=== PATIENT | male | born 1950 | race Caucasian/White ===

== ENCOUNTER → 2019-11-05 13:08 | Outpatient (CLI) | payer OTHER, SELFPAY ==
--- NOTE | ~2019-11-05 | XR_ITS ---
EXAMINATION: XR chest 2V DATE: 11/05/2019 13:42 INDICATION: Shortness of breath. TECHNIQUE: Frontal and lateral views of the chest were obtained. COMPARISON: Chest 2 views 10/07/2019, chest CT 01/08/2019 FINDINGS: Again seen is mild elevation of right hemidiaphragm. A calcified right lung nodule and calc ified mediastinal lymph nodes are consistent with old granulomatous disease. There is mild atelectasi s at the lung bases. No pleural effusion or pneumothorax. Cardiomegaly is noted. IMPRESSION: 1. Mild atelectasis at the lung bases. 2. Cardiomegaly. Reviewed, dictated and finalized at location A. [facility]
== END ==
PROVIDERS: Visit Provider Nurse Practitioner Family
DX: I51.7 Cardiomegaly (principal); J98.11 Atelectasis
CPT/HCPCS: 71046

== ENCOUNTER 2019-12-13 00:24 | Inpatient (IN) | payer MEDICARE, SELFPAY ==
[2019-12-13] VITALS (42 sets, daily range): BP systolic 91–187; BP diastolic 53–98; PULSE 50–96; RESP 12–20; TEMP 33–36.7; O2SAT 87–100; BMI 42.3
--- NOTE | ~2019-12-13 | CT_ITS ---
EXAMINATION: CT brain wo con DATE: 12/13/2019 02:10 INDICATION: Cardiac arrest. Unresponsiveness. TECHNIQUE: Computed tomography (CT) of the head was performed without intravenous contrast. The dose- length product was 605.33 mGy-cm. The mA was adjusted according to patient size. Iterative reconstruc tion technique was employed. COMPARISON: None FINDINGS: There are scattered mild periventricular and subcortical white matter changes, most likely related to small vessel ischemic disease (microangiopathy). There is diffuse loss of castellano-white diffe rentiation, suspicious for acute anoxic injury. There is effacement of the basilar cisterns. There is mucosal thickening of the paranasal sinuses. Mastoids are pneumatized. There is intracranial atheros clerosis. No evidence for intracranial hemorrhage. IMPRESSION: 1. Diffuse loss of castellano-white differentiation, suspicious for acute anoxic injury. 2: Sinusitis. 3: Chronic age-related findings. Reviewed, dictated and finalized at location A. IMPRESSION: 1. Diffuse loss of castellano-white differentiation, suspicious for acute anoxic inju ry. 2: Sinusitis. 3: Chronic age-related findings.
--- NOTE | ~2019-12-13 | XR_ITS ---
XR chest 1V portable 12/13/2019 01:56 Indication: Vomiting. Dyspnea. Procedure: AP portable chest Comparison: Comparison to multiple prior studies sequentially, with oldest reviewed study dated 08/23. Findings: Endotracheal tube tip approximately 5.2 cm above the bobbi. NG tube in the stomach. Cardio megaly with bilateral airspace disease which may represent edema and/or pneumonia. Small pleural effu sions. No pneumothorax. Left IJ central line tip in the left brachiocephalic vein. Impression: 1: Bilateral airspace disease may represent edema and/or pneumonia. 2: Small pleural effusions. 3: Cardiomegaly. Reviewed, dictated and finalized at location A. Impression: 1: Bilateral airspace disease may represent edema and/or pneumonia. 2: Small pleural effusions. 3: Cardiomegaly.
--- NOTE | ~2019-12-13 | XR_ITS ---
XR chest 1V portable 12/13/2019 00:52 Indication: Central line placement Procedure: AP portable chest Comparison: Comparison to multiple prior studies sequentially, with oldest reviewed study dated 01/08. Findings: Cardiomegaly with interstitial edema. Endotracheal tube above the thoracic inlet approximat lita 8.3 cm above the bobbi. Recommend advancement. NG tube in the stomach. No pleural effusion or pn eumothorax. Impression: 1: Cardiomegaly with interstitial edema. 2: Endotracheal tube tip approximately 8.3 cm above the bobbi. Consider advancing. Reviewed, dictated and finalized at location A. Impression: 1: Cardiomegaly with interstitial edema. 2: Endotracheal tube tip approximately 8.3 cm above the bobbi. Consider guevara boles.
--- NOTE | 2019-12-13 00:19 | ED.CPR ---
HPI - CPR General Chief Complaint: Cardiac Arrest/CPR Stated Complaint: Post cardiac arrest Time Seen by Provider: 12/13/19 00:20 Source: EMS and RN notes reviewed Mode of arrival: EMS Limitations: clinical condition History of Present Illness HPI narrative: A 69 y/o male presents to the ED via EMS from home after being found unresponsive by his roughly 50 minutes ago. EMS states that the pt's was talking to him a couple minutes before she found him face down on the floor. When they arrived the pt was asystole so they started CPR and followed ACLS protocol. They report that they intubated the pt, started a IO in his LLE, gave the pt 2 rounds of Epinephrin, and that they did CPR on the pt for roughly 25 minutes when the pt developed a palpable carotid pulse. They note that the pt has been being treated for pneumonia at home for the past 2 months. MD complaint: found unresponsive Timing confirmed by: spouse Place: home Initial findings in the field: unresponsive and no pulse Treatments prior to arrival: intubation, chest compressions and epinephrine mgs # (2) Related Data Home Medications Medication Instructions Recorded Confirmed albuterol sulfate 2.5 mg INHALATION Q4-6H PRN 11/30/19 12/13/19 amlodipine 10 mg-olmesartan 40 mg 1 tablet PO DAILY tablet 11/30/19 12/13/19 tablet atorvastatin 20 mg tablet 20 mg PO DAILY tablet 11/30/19 12/13/19 blood sugar diagnostic #10 each 11/30/19 ferrous sulfate 325 mg (65 mg 325 mg PO DAILY tablet 11/30/19 12/13/19 iron) tablet fluticasone 113 mcg-salmeterol 14 1 puff INHALATION BID each 11/30/19 12/13/19 mcg/actuation breath activated powdr glimepiride 2 mg tablet 2 mg PO DAILY tablet 11/30/19 12/13/19 lancets 33 gauge #100 each 11/30/19 omeprazole 20 mg capsule,delayed 20 mg PO DAILY cap 11/30/19 12/13/19 release oxybutynin chloride 5 mg tablet 5 mg PO DAILY tablet 11/30/19 12/13/19 potassium chloride 20 mEq 20 meq PO DAILY tablet 11/30/19 12/13/19 tablet,extended release(part/cryst) rivaroxaban 20 mg tablet 20 mg PO DAILY tablet 11/30/19 12/13/19 furosemide 40 mg tablet 40 mg PO BID tablet 12/01/19 12/13/19 omega-3 fatty acids 1,000 mg 1,000 mg PO BID 12/01/19 12/13/19 capsule Allergies Allergy/AdvReac Type Severity Reaction Status Date / Time JUVENAL Inhibitors Allergy Severe tongue Verified 12/13/19 03:24 swelling Review of Systems Review of Systems: ROS unobtainable: unobtainable due to endotracheal tube PMFSH Past Medical History Medical History (Updated 12/13/19 @ 07:00 by Angeles Rowan MD) Arthritis Chronic atrial fibrillation With cardioversion in 2014 and in 2016 however cardioversion in 2017 was unsuccessful, on long-term anticoagulation with Xarelto Chronic kidney disease, stage 3 Chronic obstructive pulmonary disease Chronic respiratory failure with hypoxia and hypercapnia Diastolic heart failure Elevated prostate specific antigen [PSA] Essential (primary) hypertension Former smoker GERD (gastroesophageal reflux disease) Herniation of right side of L4-L5 intervertebral disc History of BPH History of melena History of pneumonia Hypercholesteremia CHET on CPAP Pneumonia Type 2 diabetes mellitus Venous insufficiency Surgical History Surgical History (Updated 12/13/19 @ 06:33 by Candelaria Summers DO) History of angioplasty History of cholecystectomy History of colonoscopy Colonoscopy with polypectomy with multiple polyps in 2014 and repeat colonoscopy January 2019 demonstrating uncomplicated internal hemorrhoids and few diverticula History of esophagogastroduodenoscopy (EGD) Performed due to GI bleeding demonstrated gastric polyp History of prostate biopsy June 2018 complicated by E coli bacteremia postoperatively, reportedly benign pathology Hx of cardiac cath Hx of heart artery stent x3. Family History Family History Father Diabetes mellitus Hypertension
--- NOTE | 2019-12-13 00:28 | PC.NURSE ---
PT UNRESP WITH A PULSE- SINUS NIKOS 45. DR VILLANUEVA AT BEDSIDE. VRBO ATROPINE 0.5 MG IVP- GIVEN.
--- NOTE | 2019-12-13 00:45 | ECG_ITS ---
Measurements Intervals [place] Rate: 56 P: [place]: 0 QRS: -87 QRSD: 166 T: -35 QT: 436 QTc: 424 Interpretive Statements ATRIAL FIBRILLATION WITH SLOW VENTRICULAR RESPONSE LEFT AXIS DEVIATION RIGHT BUNDLE BRANCH BLOCK INFERIOR INFARCT, AGE INDETERMINATE BASELINE ARTIFACT- V4-V6 ABNORMAL ECG Electronically Signed On 12-13-2019 8:00:44 CDT by Sandeep Schmidt D.O.
[2019-12-13 00:57] LABS: Basophils Percent Auto 0.5 % (0.2-1.2); Eosinophils Percent Auto 0.2 % (0-4.4); Hemoglobin 10.9 g/dL (14.0-18.0); Immature Granulocyte Absolute 0.17 K/mm3 (0.00-0.031); Lymphocytes Absolute Auto 1.53 K/mm3 (0.9-3.2); Lymphocytes Percent Auto 18.2 % (18.3-44.2); Mean Corpuscular HGB Conc 27.9 g/dl (32-36); Mean Corpuscular Hemoglobin 28.6 pg (26-34); Mean Corpuscular Volume 102.4 fl (80-100); Mean Platelet Volume 10.8 fl (7.4-10.4); Monocytes Absolute Auto 0.7 K/mm3 (0.1-0.6); Monocytes Percent Auto 8.5 % (2.6-8.5); Neutrophils Absolute Auto 5.9 K/mm3 (1.3-6.7); Neutrophils Percent Auto 70.6 % (45.5-73.1); Nucleated Red Blood Cells Perc 0.4 % (0.0-0.2); Platelet Count Result 173 k/mm3 (150-375); Red Blood Count 3.81 M/mm3 (4.6-6.20); Red Cell Distribution Width 16.3 % (11.5-14.5); White Blood Count 8.4 K/mm3 (4.5-10.0)
[2019-12-13 01:25] LABS: Alanine Aminotransferase 30 U/L (4-50); Albumin Level 3.6 g/dL (3.5-5.1); Alkaline Phosphatase 69 U/L (38-126); Aspartate Amino Transferase 64 U/L (17-59); Bilirubin,Total 0.6 mg/dL (0.2-1.3); Blood Urea Nitrogen 26 mg/dL (9-20); Calcium 8.4 mg/dL (8.4-10.2); Carbon Dioxide 34 mmol/L (22-30); Chloride 92 mmol/L (98-107); Estimated Glomerular Filt Rate 46; Glucose 232 mg/dL (75-110); INR 3.1; Magnesium 2.7 mg/dL (1.6-2.3); NT Pro B Type Natriuretic Pept 2270 PG/ML (5-100); Partial Thromboplastin Time 41.7 SECONDS (22.3-36.8); Potassium 5.1 mmol/L (3.4-5.0); Prothrombin Time 31.6 Seconds (11.1-14.7); Sodium 139 mmol/L (137-145); Troponin I 0.046 ng/mL (0.000-0.034)
--- NOTE | 2019-12-13 01:48 | PC.NURSE ---
DR VILLANUEVA AT BEDSIDE. ATTEMPT TO ADVANCE ET TUBE PER RADIOLOGY INSTRUCTION, UNSUCCESSFUL. PT RE- INTUBATED PER DR VLILANUEVA WITH 7.0 ET TUBE TAPED 26 AT LIP. PT TOLERATED WELL. OG TUBE ADVANCED TO 80 PER RADIOLOGY INSTRUCTION. PT TOLERATED WELL. XRAY AT BEDSIDE FOR IMAGES. FAMILY UPDATED. WILL CONTINUE TO MONITOR.
[2019-12-13 01:52] LABS: Alveolar/Arterial O2 Gradient 519.5 mmHg; Base Excess ABG 2.5 mEq/l (+/-2.0); Carboxyhemoglobin 1.5 % THb (0-2.0); Device VENTILATOR; Fractional Inspired Oxygen 100 %; HCO3 ABG 33.8 mEq/l (22.0-26.0); Methemoglobin ABG 0.3 %THb (0-1.5); Modified Allen's Test Unable to perform; Oxygen Saturation ABG 95.2 % (95.0-100.0); Oxyhemoglobin 93.9 % THb (90.0-100.0); PCO2 ABG 95.1 mmHg (35.0-45.0); PO2 ABG 98.4 mmHg (80.0-100.0); PO2 FiO2 Ratio Arterial Blood 0.98 %; Reduced Hemoglobin 4.3 %THb (0-5.0); Site Drawn LEFT RADIAL; Total Hemoglobin 12.8 g/dL (12.0-18.0); pH ABG 7.169 (7.350-7.450)
[2019-12-13 01:53] LABS: Arterial Blood Gas PEEP 5 cmH2O; Arterial Blood Gas Tidal Volume 500 ml; Arterial Blood Gas Vent Mode CMV; Arterial Blood Gas Ventilator rate 16 /MIN
[2019-12-13 02:08] LABS: Add Urine Microscopic? YES; Appearance Urine Cloudy (Clear); Bacteria Urine Trace /hpf; Bilirubin Urine Negative (Negative); Blood Urine 1+ (Negative); Color Urine Yellow (Yellow); Glucose Urine UA 2+ mg/dL (Negative); Ketones Urine Negative (Negative); Leukocyte Esterase Ur Negative LEU/UL (Negative); Mucus Urine Few /lpf; Nitrate Urine Negative (Negative); Protein Urine 3+ mg/dL (Negative); RBC Urine 51-75 /hpf (0-2); Specific Grav Ur 1.011 (1.001-1.035); Squamous Epithelial Cell Urine Occasional /hpf (Few); Urobilinogen Urine Negative mg/dL (<2.0); WBC Urine 16-20 /hpf
--- NOTE | 2019-12-13 02:23 | PC.NURSE ---
pt blood pressure 107/68. dr adams notified. vrbo increase levophed drip to 15 mcg/min.
--- NOTE | 2019-12-13 02:25 | PCRCNOTE ---
TRANSPORTED PT VIA AMBU BAG FROM ER TO CT AND BACK. NO ADVERSE EVENTS NOTED DURING TRANSPORT
[2019-12-13 02:30] LABS: Lactic Acid Reflex 4.6 mmol/L (0.7-2.1)
--- NOTE | 2019-12-13 04:42 | ADMGEN ---
This patient, Elvis Fitch, was admitted to Intensive Care Unit-9. Patient/family oriented to hospital policies and general routines including ID bracelet, bed and alarms, visiting hours, pain management, procedures, bathroom and other care routines, personal items, smoking policy, room service/diet, and visiting hours. Valuables list has been completed. Information on how to activate the Rapid Response Team has been discussed. Patient/Family are encouraged to report perceived risks to care and to ask questions if they do not understand what they are told or what they should do.
[2019-12-13 04:59] LABS: Reflex Lactic Acid Yes or No Add Lactic
[2019-12-13] MEDS: NOREPINEPHRINE 8 MG/D5W 250 ML 8 MG/250 ML BAG 18.8 MG IV CONT (05:02)
[2019-12-13 05:14] LABS: Glucose Point of Care 286 (65-105)
--- NOTE | 2019-12-13 05:22 | PM.IMHP ---
H&P: HPI History of Present Illness Chief complaint: CARDIOPULMONARY ARREST Narrative: Date and time of patient contact: 12/13/2019 at 4:00 a.m. Source of information: Information was obtained from ER report and from past medical records. Patient's went home before the patient arrived in the ICU. The patient's had evidently taken NyQuil prior to the patient going into cardiac arrest. Elvis Fitch is a 69 year old male with a past medical history chronic atrial fibrillation on chronic anticoagulation, chronic respiratory failure, obstructive sleep apnea, congestive heart failure, COPD/asthma, and coronary artery disease who presented to the ER via EMS after having a cardiac arrest at home. The the patient's reported to the ER staff that she had been talking to the patient a couple of minutes before she found him face down on the floor. When EMS arrived at the patient's house the patient was in asystole and they started CPR. The patient was intubated in the field and and IO was placed in his left lower extremity. He received 2 rounds of epinephrine and he perform CPR for 25 minutes. The patient developed a palpable carotid pulse. A chest x-ray was performed when patient arrived to the ER and was concerning for the ET tube being above the vocal cords. The patient was reintubated by the ER physician with fiberoptic scope confirming passage of the tube past the vocal cords. Repeat imaging demonstrated ET tube 7 cm above the bobbi but the ET tube was inserted as far as possible into the patient's airway. The patient does have equal breath sounds. Patient was oxygenating and ventilating without difficulty. In the ER staff aspirated frankly purulent material from the patient's airway. The patient's had reported that the patient has been treated for pneumonia at home for the past 2 months. The patient had reportedly had an increase in his oxygen requirement today up to 3 L. while in the ER the patient did have another episode of cardiac arrest at which time he was successfully resuscitated. ABG performed in the ER demonstrated a mixed acidosis with hypercarbia, and lactic acidosis. A CT scan of brain demonstrated loss of castellano white matter differentiation appearance most pronounced in the basal ganglia, appearance is overall highly concerning for diffuse anoxic injury. Chest x-ray suggested bilateral pleural effusions, vascular congestion increasing, mild perihilar ground-glass clear consolidations concerning for pulmonary edema, probable [id number] cardiomegaly. The patient bradycardia was treated in the ER with ACLS medications initially. He was subsequently placed on Levophed when he developed hypotension. Patient arrived to the ICU on Levophed of 15 with systolic blood pressures in the 120s to 130s. Review of Systems Review of Systems: ROS unobtainable: unobtainable due to mental condition [facility] Past Medical History Medical History (Updated 12/13/19 @ 06:33 by Candelaria Summers DO) Arthritis Chronic atrial fibrillation With cardioversion in 2014 and in 2016 however cardioversion in 2017 was unsuccessful, on long-term anticoagulation with Xarelto Chronic kidney disease, stage 3 Chronic obstructive pulmonary disease Chronic respiratory failure with hypoxia and hypercapnia Diastolic heart failure Elevated prostate specific antigen [PSA] Essential (primary) hypertension Former smoker GERD (gastroesophageal reflux disease) Herniation of right side of L4-L5 intervertebral disc History of BPH History of melena History of pneumonia Hypercholesteremia CHET on CPAP Pneumonia Type 2 diabetes mellitus Venous insufficiency Surgical History Surgical History (Updated 12/13/19 @ 06:33 by Candelaria Summers DO) History of angioplasty History of cholecystectomy History of colonoscopy Colonoscopy with polypectomy with multiple polyps in 2014 and repeat colonoscopy January 2019 demonstrating uncomplicated internal hemorrhoi
--- NOTE | 2019-12-13 05:22 | WPDPROCEDUR ---
Procedures Arterial Line: Arterial Line Date: 12/13/19 Arterial Line Time: 05:00 Discussed with the patient/family/POA, the non-emergent placement of an arterial catheter, including its clinical necessity/indication and associated potential risks and complications: No Patient/family/POA and/or understand(s) and acknowledge(s) the need to proceed with the arterial catheter insertion as an important element of the patient's clinical management: No Perfomed Emergently - Given emergent patient conditions, temporal constraints may have precluded informed consent: Yes A pre-procedural Time-Out was completed immediately before starting the procedure and confirmed: Patient Identification, Site, Procedure, Patient Position and the Availability of Requisite Equipment: Yes Patient Position: trendelenburg Fiber Optic Splicer Prep: sterile gown, sterile gloves, mask and hat Site: right Site Prep: chlorhexidine and sterile drape Skin Anesthesia: none Technique used: ultrasound-guided Size (Gauge): 20 Length: 12 cm Closure/Dressing: suture, tegaderm and other (Hemostatic disc) Patient tolerated procedure: well Complications: none Additional comments: I initially attempted an ultrasound guided femoral art line without success. With converted to a radial art line using an inline arrow kit. The right radial artery was located by ultrasound. Successful return of radial blood return with advancement of the guidewire and subsequently the catheter over the guidewire. Line was sutured in place with a straight needle. Catheter was covered with a hemostatic disc and Tegaderm. 15 mL of estimated blood loss
[2019-12-13 05:58] LABS: Glucose Point of Care 295 (65-105)
[2019-12-13] MEDS: INSULIN ASPART (*BKC) 100 UNITS/ML SUB-Q ×2 (06:33→12:12)
[2019-12-13 06:38] LABS: Hematocrit 38.5 % (42.0-52.0); Hemoglobin 11.5 g/dL (14.0-18.0); Mean Corpuscular HGB Conc 29.9 g/dl (32-36); Mean Corpuscular Hemoglobin 28.8 pg (26-34); Mean Corpuscular Volume 96.3 fl (80-100); Mean Platelet Volume 10.8 fl (7.4-10.4); Platelet Count Result 233 k/mm3 (150-375); Red Cell Distribution Width 16.2 % (11.5-14.5); White Blood Count 14.8 K/mm3 (4.5-10.0)
[2019-12-13 06:49] LABS: INR 2.3; Prothrombin Time 25.1 Seconds (11.1-14.7)
[2019-12-13 06:50] LABS: Partial Thromboplastin Time 37.3 SECONDS (22.3-36.8)
[2019-12-13 07:02] LABS: Troponin I 0.555 ng/mL (0.000-0.034)
[2019-12-13 07:10] LABS: Glucose Point of Care 268 (65-105)
[2019-12-13 07:17] LABS: Magnesium 2.1 mg/dL (1.6-2.3)
[2019-12-13 07:25] LABS: Phosphorus 3.9 mg/dL (2.5-4.5)
[2019-12-13 07:26] LABS: Alveolar/Arterial O2 Gradient 577.3 mmHg; Base Excess ABG 5.6 mEq/l (+/-2.0); Carboxyhemoglobin 0.3 % THb (0-2.0); Fractional Inspired Oxygen 100 %; HCO3 ABG 30.6 mEq/l (22.0-26.0); Methemoglobin ABG 0.2 %THb (0-1.5); Oxyhemoglobin 95.4 % THb (90.0-100.0); PCO2 ABG 46.6 mmHg (35.0-45.0); PO2 ABG 89.1 mmHg (80.0-100.0); PO2 FiO2 Ratio Arterial Blood 0.89 %; Reduced Hemoglobin 4.1 %THb (0-5.0); Total Hemoglobin 11.1 g/dL (12.0-18.0); pH ABG 7.435 (7.350-7.450)
[2019-12-13 07:32] LABS: Device VENTILATOR; Site Drawn ARTLINE
[2019-12-13 07:33] LABS: Arterial Blood Gas Minute Volume 0 LPM; Arterial Blood Gas PEEP 5 cmH2O; Arterial Blood Gas Pressure Support 0 cmH2O; Arterial Blood Gas Tidal Volume 500 ml; Arterial Blood Gas Vent Mode CMV; Arterial Blood Gas Ventilator rate 18 /MIN; Peak Inspiratory Pressure 0 cmH2O
[2019-12-13 08:04] LABS: Alanine Aminotransferase 41 U/L (4-50); Creatine Kinase 171 U/L (55-170)
[2019-12-13 08:06] LABS: Glucose Point of Care 259 (65-105)
[2019-12-13] MEDS: ALBUTEROL SULFATE NEB 2.5 MG/0.5 ML INH 5 MG INHALATION ×2 (08:16→14:04)
[2019-12-13] MEDS: BUDESONIDE RESPULE NEB 0.5 MG/2 ML AMP INHALATION (08:16)
[2019-12-13] MEDS: IPRATROPIUM BR 0.02% INH SOLN 0.5 MG/2.5 ML VIAL INHALATION ×2 (08:17→14:04)
--- NOTE | 2019-12-13 08:48 | PM.IMPN ---
Progress Note: A&P Assessment and Plan (1) Acute and chronic respiratory failure: Qualifiers: Respiratory failure complication: hypoxia and hypercapnia Qualified Code(s): J96.21 - Acute and chronic respiratory failure with hypoxia; J96.22 - Acute and chronic respiratory failure with hypercapnia Code(s): J96.20 - Acute and chronic respiratory failure, unspecified whether with hypoxia or hypercapnia Status: Acute Assessment and Plan: Due to pneumonia and cardiac arrest Vent support, bronchodilators, antibiotics, pulmonary toilet (2) Cardiac arrest with successful resuscitation: Code(s): I46.9 - Cardiac arrest, cause unspecified Status: Acute Assessment and Plan: As he had respiratory symptoms for 2 weeks, this was possibly due to acute on chronic respiratory failure. (3) Anoxic brain injury: Code(s): G93.1 - Anoxic brain damage, not elsewhere classified Status: Acute Assessment and Plan: Hypothermic protocol Given age, comorbidities, down time, prognosis is poor (4) Pneumonia: Qualifiers: Laterality: unspecified laterality Lung location: unspecified part of lung Pneumonia type: due to unspecified organism Qualified Code(s): J18.9 - Pneumonia, unspecified organism Code(s): J18.9 - Pneumonia, unspecified organism Status: Acute Assessment and Plan: Vancomycin and Zosyn. (5) Sepsis: Qualifiers: Acute respiratory failure type: with hypercapnia Sepsis acute organ dysfunction status: with acute organ dysfunction Sepsis type: sepsis due to unspecified organism Severe sepsis acute organ dysfunction type: acute respiratory failure Severe sepsis shock status: without septic shock Qualified Code(s): A41.9 - Sepsis, unspecified organism; R65.20 - Severe sepsis without septic shock; J96.02 - Acute respiratory failure with hypercapnia Code(s): A41.9 - Sepsis, unspecified organism Status: Acute (6) Acidosis, lactic: Code(s): E87.2 - Acidosis Status: Acute Subjective Date/time seen: 12/13/19 08:48 Interval history: Admitted 12/12 early AM with cardiac arrest at home while seated. EMS found him in assystole. Resuscitated in the field and again in ED. Placed on hypothermic protocol in ICU. Review of Systems Review of Systems: ROS unobtainable: unobtainable due to mental condition Exam Narrative: Exam Narrative: HEENT: pinpoint pupils, sclerae nonicteric, pharyngeal mucosa pink and intact NECK: No JVD CHEST: Coarse BS HEART: NL S1/S2, regular, no murmur ABDOMEN: BS+, soft, nontender, no mass, no bruits EXTREMITIES: trace pitting edema, dry skin NEUROLOGIC: CN intact and symmetric to inspection. MUSCULOSKELETAL: no gross deformities PSYCH: sedated Objective Data Vital Signs Vital Signs: Vital Signs - 24 hr 12/13/19 00:21 12/13/19 00:39 12/13/19 00:43 Temperature 98.1 F Pulse Rate 50 L 96 85 Respiratory Rate 12 16 18 Blood Pressure 110/84 145/74 H 91/53 L Pulse Oximetry 87 L 96 97 12/13/19 00:55 12/13/19 00:57 12/13/19 01:05 Temperature Pulse Rate 92 93 93 Respiratory Rate 12 16 Blood Pressure 148/78 H 156/98 H Pulse Oximetry 99 100 99 12/13/19 01:11 12/13/19 02:12 12/13/19 02:18 Temperature Pulse Rate 90 65 68 Respiratory Rate 16 20 Blood Pressure 159/94 H 110/56 L Pulse Oximetry 99 96 95 12/13/19 02:23 12/13/19 02:33 12/13/19 02:51 Temperature Pulse Rate 66 60 58 L Respiratory Rate 20 20 20 Blood Pressure 107/68 114/72 118/69 Pulse Oximetry 96 96 96 12/13/19 03:02 12/13/19 03:12 12/13/19 03:25 Temperature 97.1 F L Pulse Rate 60 57 L 58 L Respiratory Rate 20 20 20 Blood Pressure 121/63 119/65 131/66 Pulse Oximetry 96 98 99 12/13/19 03:34 12/13/19 03:47 12/13/19 04:00 Temperature Pulse Rate 59 L 56 L 56 L Respiratory Rate 20 20 Blood Pressure 125/73 130/71 Pulse Oximetry 99 96 12/13/19 04:27 12/13/19 05:16
[2019-12-13 08:55] LABS: Albumin Level 3.3 g/dL (3.5-5.1); Alkaline Phosphatase 85 U/L (38-126); Aspartate Amino Transferase 84 U/L (17-59); Blood Urea Nitrogen 35 mg/dL (9-20); Calcium 8.1 mg/dL (8.4-10.2); Carbon Dioxide 31 mmol/L (22-30); Chloride 92 mmol/L (98-107); Estimated CRCL calculation 59 ml/min; Estimated Glomerular Filt Rate 46; Glucose 300 mg/dL (75-110); Potassium 4.4 mmol/L (3.4-5.0); Sodium 139 mmol/L (137-145)
[2019-12-13 09:36] LABS: Glucose Point of Care 236 (65-105)
[2019-12-13] MEDS: PANTOPRAZOLE SODIUM IV 40 MG VIAL IV PUSH (09:37)
[2019-12-13 10:08] LABS: Glucose Point of Care 241 (65-105)
[2019-12-13 10:27] LABS: Troponin I 0.649 ng/mL (0.000-0.034)
[2019-12-13 11:08] LABS: Glucose Point of Care 226 (65-105)
--- NOTE | 2019-12-13 11:36 | WPDCNINT ---
Assessment and Plan Assessment and plan (1) Cardiac arrest with successful resuscitation: Code(s): I46.9 - Cardiac arrest, cause unspecified Status: Acute Assessment and Plan: He had a total of 2 episodes of asystole arrest. Total downtime in field was about 30-35 minutes with active CPR for 25 minutes. The 2nd episode in emergency department downtime is unclear. Heart rate in 60s most of the time. Was requiring Levophed initially for significant bradycardia but that has been weaned off already. He is currently on hypothermia protocol. Target temperature has not been achieved yet. (2) Acute and chronic respiratory failure: Qualifiers: Respiratory failure complication: hypoxia and hypercapnia Qualified Code(s): J96.21 - Acute and chronic respiratory failure with hypoxia; J96.22 - Acute and chronic respiratory failure with hypercapnia Code(s): J96.20 - Acute and chronic respiratory failure, unspecified whether with hypoxia or hypercapnia Status: Acute Assessment and Plan: Continue mechanical ventilation with current settings. Wean PEEP and FiO2 if tolerated. Monitor ABG and chest x-ray. He is currently not on any sedatives. (3) Anoxic brain injury: Code(s): G93.1 - Anoxic brain damage, not elsewhere classified Status: Acute Assessment and Plan: Initial CT scan done in the emergency department at the time of presentation showed loss of castellano-white ifferentiation specially in the basal ganglia area which is suggestive of significant anoxic brain damage. He is currently on hypothermia protocol. Target temperature has not been achieved yet. He is not on any sedatives. Avoid opiates and benzodiazepine. Neurological prognostication exam after 48-72 hours after rewarming. Currently pupils are pinpoint and with sluggish reaction to light. He does not have any gag and corneal reflex. (4) Pneumonia: Qualifiers: Pneumonia type: due to unspecified organism Laterality: unspecified laterality Lung location: unspecified part of lung Qualified Code(s): J18.9 - Pneumonia, unspecified organism Code(s): J18.9 - Pneumonia, unspecified organism Status: Acute Assessment and Plan: He has purulent secretion at the time of re-intubation and does have purulent secretion suctioned with the ET tube. Continue empiric antibiotic with Zosyn and vancomycin. Follow cultures. Deescalate antibiotics depending upon the cultures. (5) Acidosis, lactic: Code(s): E87.2 - Acidosis Status: Acute Assessment and Plan: Repeat lactic acid after IV fluid hydration. (6) Sepsis: Qualifiers: Sepsis type: sepsis due to unspecified organism Sepsis acute organ dysfunction status: with acute organ dysfunction Severe sepsis acute organ dysfunction type: acute respiratory failure Acute respiratory failure type: with hypercapnia Severe sepsis shock status: without septic shock Qualified Code(s): A41.9 - Sepsis, unspecified organism; R65.20 - Severe sepsis without septic shock; J96.02 - Acute respiratory failure with hypercapnia Code(s): A41.9 - Sepsis, unspecified organism Status: Acute Assessment and Plan: Likely secondary to pneumonia. He was on Levophed but that was mainly for bradycardia rather than true hypertension. Currently Levophed has been weaned off. He is making good amount of urine. (7) Chronic obstructive pulmonary disease: Code(s): J44.9 - Chronic obstructive pulmonary disease, unspecified Status: Acute Assessment and Plan: Continue bronchodilators. He is not having any wheezing. Systemic steroid not indicated. Additional Plan DVT prophylaxis with subcu Lovenox and SCD boot GI prophylaxis with pantoprazole IV critical care time 45 minutes Due to a high probability of clinically significant, life threatening deterioration, the patient required my highes
[2019-12-13 11:57] LABS: Creatine Kinase 218 U/L (55-170)
[2019-12-13 11:58] LABS: Lactic Acid 2.1 mmol/L (0.7-2.1)
[2019-12-13 12:18] LABS: Glucose Point of Care 218 (65-105)
[2019-12-13 13:06] LABS: Glucose Point of Care 197 (65-105)
--- NOTE | 2019-12-13 13:30 | ECG_ITS ---
Measurements Intervals [place] Rate: 56 P: [place]: 0 QRS: -85 QRSD: 161 T: 34 QT: 439 QTc: 426 Interpretive Statements ATRIAL FIBRILLATION WITH SLOW VENTRICULAR RESPONSE RIGHT BUNDLE BRANCH BLOCK LEFT ANTERIOR FASCICULAR BLOCK CONSIDER INFERIOR INFARCT, AGE INDETERMINATE BASELINE ARTIFACT- I, II, III, AVR, AVL, AVF, V5 ABNORMAL ECG Electronically Signed On 12-13-2019 8:10:14 CDT by Sandeep Schmidt D.O.
[2019-12-13 14:09] LABS: Glucose Point of Care 196 (65-105)
[2019-12-13] MEDS: LORAZEPAM INJ 2 MG/ML VIAL 1 MG IV PUSH (14:40)
--- NOTE | 2019-12-13 15:48 | PM.DDS ---
Discharge Sum: Prov Provider Primary care physician: Oscar Grimm DO Admitting provider: Candelaria Summers DO Consults: 12/13/19 03:18 Consult to Physician Routine Comment: Consulting Provider: Martir Longoria Reason for consultation: cardiac arrest Has provider been notified: Yes 12/13/19 14:32 Consult to Spiritual Care Services Routine Comment: Discharge Sum: Diag Contributing Factors (1) Sepsis: (2) Acidosis, lactic: (3) Pneumonia: (4) Anoxic brain injury: (5) Cardiac arrest with successful resuscitation: (6) Acute and chronic respiratory failure: (7) Chronic obstructive pulmonary disease: Discharge Sum: Summary Date and Time Date of admission: 12/13/19 03:17 Summary Details: Patient was admitted due to cardiac arrest at home. Originally in asystole. Resuscitated with epinephrine and CPR in the field. Required repeat set resuscitation in the emergency department to a was intubated in the field and reintubate in the emergency department. Central line placed supportive therapy initiated. Hypothermia protocol for anoxic brain injury. Because the patient was DNR and his prognosis for meaningful recovery was poor family opted to withdraw care. Patient was placed on comfort measures only transferred to the medical floor where he peacefully. Additional Data Attending physician: Candelaria Summers DO
--- NOTE | 2019-12-13 19:06 | ADMIMU ---
This patient, Elvis Fitch, was admitted to IMU status, and placed in Intensive Care Unit-9. Patient/family oriented to hospital policies and general routines including ID bracelet, bed and alarms, visiting hours, pain management, procedures, bathroom and other care routines, personal items, smoking policy, room service/diet, and visiting hours. Valuables list has been completed. Information on how to activate the Rapid Response Team has been discussed. Patient/Family are encouraged to report perceived risks to care and to ask questions if they do not understand what they are told or what they should do.
--- NOTE | 2019-12-13 19:07 | PC.NURSE ---
Patient time of was 1755 post extubation.
--- NOTE | 2019-12-13 21:30 | ECG_ITS ---
Measurements Intervals [place] Rate: 60 P: [place]: 0 QRS: -78 QRSD: 184 T: 30 QT: 475 QTc: 476 Interpretive Statements ATRIAL FIBRILLATION RIGHT BUNDLE BRANCH BLOCK LEFT ANTERIOR FASCICULAR BLOCK BASELINE ARTIFACT- I, II, III, AVR, AVL, AVF, V1-V6 ABNORMAL ECG Electronically Signed On 12-13-2019 14:49:12 CDT by Sandeep Schmidt D.O.
== END 2019-12-13 17:55 | disposition expired | DRG 871 ==
LOC: ANHED 00:50 → ANHICU 06:21
PROVIDERS: Admitting Provider Internal Medicine; Emergency Provider General Practice; PCP Internal Medicine; Visit Provider Internal Medicine
DX: A41.9 Sepsis, unspecified organism (principal); J96.20 Acute and chronic respiratory failure, unspecified whether with hypoxia or hypercapnia; J18.9 Pneumonia, unspecified organism; G93.1 Anoxic brain damage, not elsewhere classified; I48.20 Chronic atrial fibrillation, unspecified; E87.4 Mixed disorder of acid-base balance; I50.32 Chronic diastolic (congestive) heart failure; I13.0 Hypertensive heart and chronic kidney disease with heart failure and stage 1 through stage 4 chronic kidney disease, or unspecified chronic kidney disease; Z68.41 Body mass index [BMI] 40.0-44.9, adult; I48.91 Unspecified atrial fibrillation; Z79.01 Long term (current) use of anticoagulants; G47.33 Obstructive sleep apnea (adult) (pediatric); J44.9 Chronic obstructive pulmonary disease, unspecified; I25.10 Atherosclerotic heart disease of native coronary artery without angina pectoris; I46.9 Cardiac arrest, cause unspecified; M19.90 Unspecified osteoarthritis, unspecified site; R00.1 Bradycardia, unspecified; N18.3 Chronic kidney disease, stage 3 (moderate); E78.00 Pure hypercholesterolemia, unspecified; E11.22 Type 2 diabetes mellitus with diabetic chronic kidney disease; I87.2 Venous insufficiency (chronic) (peripheral); Z87.891 Personal history of nicotine dependence; Z86.010 Personal history of colon polyps; E66.9 Obesity, unspecified
CPT/HCPCS: 12013; 36415; 36556; 36600; 70450; 71045; 80053; 81001; 82375; 82550; 82805; 83050; 83605; 83735; 83880; 84100; 84484; 85025; 85027; 85610; 85730; 87040; 87070; 87077; 87081; 87086; 87185; 87186; 87205; 87804; 92950; 93005; 94003; 94640; 96365; 96375; 99291; A9270; C1751; C9113; J1815; J2060; J2543; J3370; J7030; J7040; J7060